=== PATIENT | male | born 1960 | race Two or more races ===

== ENCOUNTER 2023-05-25 05:03 | Day surgery (SDC) | payer OTHER ==
[2023-05-25] MEDS ORDERED: FENTANYL PF 100MCG/2ML AMPUL ONE (06:24)
[2023-05-25] MEDS ORDERED: Magnesium 1 GM/2 ML VIAL ONE (06:24)
[2023-05-25] MEDS ORDERED: FAMOTIDINE/PF INJ 20 MG/2 ML VIAL IV ONE (06:25)
[2023-05-25] MEDS ORDERED: BUPIVACAINE 0.25% 75 MG/30 ML VIAL ONE (06:49)
== END 2023-05-25 09:15 | disposition home or self-care (01) ==
LOC: DS 05:03
PROVIDERS: ATTEND Specialist
DX: M65.88 Other synovitis and tenosynovitis, other site (principal); I10 Essential (primary) hypertension; E78.00 Pure hypercholesterolemia, unspecified
CPT/HCPCS: 26055; 26145; J1100; J2371; J2405; J2704; J2765; J3010; J3490; J7030; J2370; J3475